=== PATIENT | male | born 1950 | race Caucasian/White ===

== ENCOUNTER 2019-01-09 07:51 | Day surgery (SDC) | payer OTHER ==
[2019-01-09] MEDS ORDERED: CEFAZOLIN 2 GM/50 ML (PMX) 50 ML IVPB (08:00)
[2019-01-09] MEDS ORDERED: SOD CHLORIDE 0.9% 1,000 ML IV (08:00)
[2019-01-09 08:49] LABS: ADD MAN DIFF? NO
[2019-01-09 08:54] LABS: WHITE BLOOD COUNT 4.8 10^3/ul (4.8-10.8)
[2019-01-09 08:54] LABS: BASOPHILS % 0.8 % (0.0-2.0); EOSINOPHILS # 0.1 10^3/ul (0.0-0.5); EOSINOPHILS % 2.9 % (0.0-7.0); HEMATOCRIT 40.5 % (42.0-52.0); HEMOGLOBIN 13.3 g/dl (14.0-18.0); LYMPHOCYTES # 1.2 10^3/ul (0.8-2.9); LYMPHOCYTES % 24.5 % (15.0-51.0); MEAN CORPUSCULAR HEMOGLOBIN 30.7 pg (29.0-33.0); MEAN CORPUSCULAR HGB CONC 32.8 g/dl (32.0-37.0); MEAN CORPUSCULAR VOLUME 93.5 fl (82.0-101.0); MEAN PLATELET VOLUME 9.9 fl (7.4-10.4); MONOCYTE # 0.6 10^3/ul (0.3-0.9); MONOCYTES % 12.1 % (0.0-11.0); NEUTROPHIL # 2.8 10^3/ul (1.6-7.5); NEUTROPHILS % 59.5 % (39.0-77.0); PLATELET COUNT 145 10^3/UL (140-415); RED BLOOD COUNT 4.33 10^6/ul (4.70-6.10); RED CELL DISTRIBUTION WIDTH 14.3 % (11.5-14.5)
[2019-01-09 09:14] LABS: INR 1.05; PROTIME 13.8 Sec (11.9-14.9); PT RATIO 1.1
[2019-01-09 09:34] LABS: ALANINE AMINOTRANSFERASE 46 IU/L (13-69); ALBUMIN 4.3 g/dl (3.3-4.9); ALBUMIN/GLOBULIN RATIO 1.04; ALKALINE PHOSPHATASE 61 IU/L (42-121); ANION GAP 12 (5-13); ASPARTATE AMINO TRANSFERASE 41 IU/L (15-46); BILIRUBIN,INDIRECT 0.1 mg/dl (0-1.1); BILIRUBIN,TOTAL 0.1 mg/dl (0.2-1.3); BLOOD UREA NITROGEN 19 mg/dl (7-20); CALCIUM 9.5 mg/dl (8.4-10.2); CARBON DIOXIDE 28 mmol/L (21-31); CHLORIDE 101 mmol/L (97-110); CREATININE 0.65 mg/dl (0.61-1.24); Estimated GFR > 60 mL/min (>60); GLUCOSE 109 mg/dl (70-220); POTASSIUM 4.4 mmol/L (3.5-5.1); SODIUM 141 mmol/L (135-144); TOTAL PROTEIN 8.4 g/dl (6.1-8.1)
[2019-01-09] MEDS ORDERED: ROCURONIUM 50 MG INJ (09:37)
[2019-01-09] MEDS ORDERED: LIDOCAINE 2% (SDV) 5 ML INJ (09:37)
[2019-01-09] MEDS ORDERED: PROPOFOL 20 ML (09:37)
[2019-01-09] MEDS ORDERED: CEFAZOLIN 1 GM INJ (09:38)
[2019-01-09] MEDS ORDERED: FENTAnyl 50 MCG/ML VIAL ×2 (09:38→10:45)
[2019-01-09] MEDS ORDERED: ONDANSETRON 4 MG INJ (09:38)
[2019-01-09] MEDS ORDERED: DEXAMETHASONE 4 MG/ML 5 ML INJ (09:38)
[2019-01-09] MEDS ORDERED: MIDAZOLAM 1 MG/ML 2 ML INJ (09:38)
[2019-01-09] MEDS ORDERED: FENTAnyl 50 MCG/ML VIAL IV (10:00)
[2019-01-09] MEDS ORDERED: LABETALOL HCL 20MG INJ IV (10:00)
[2019-01-09] MEDS ORDERED: SUGAMMADEX SODIUM 200 MG/2 ML VIAL IV (10:33)
[2019-01-09] MEDS: BUPIVACAINE 0.5%/EPI (SDV) 30 ML INJ (10:39)
[2019-01-09] MEDS: LIDOCAINE 1% (MPF) 30 ML INJ (10:40)
[2019-01-09] MEDS ORDERED: KETOROLAC 30 MG INJ (12:46)
[2019-01-09] MEDS: hydrALAzine 20 MG INJ IV (13:09)
[2019-01-09] MEDS: HYDROmorphONE 1 MG/5 ML IV SYRINGE IV ×2 (13:31→13:46)
[2019-01-09] MEDS: ONDANSETRON 4 MG INJ IV (13:31)
[2019-01-09] MEDS ORDERED: MEPERIDINE 25 MG INJ (13:37)
[2019-01-09] MEDS: MEPERIDINE 25 MG INJ IV (13:57)
[2019-01-09] MEDS ORDERED: MEPERIDINE 50 MG INJ IV (14:00)
[2019-01-09] MEDS: ACETAMINOPHEN 500 MG TAB PO (15:18)
== END 2019-01-09 15:40 | disposition home or self-care (01) ==
LOC: SDS 07:51
DX: K40.20 Bilateral inguinal hernia, without obstruction or gangrene, not specified as recurrent (principal); I10 Essential (primary) hypertension; F17.200 Nicotine dependence, unspecified, uncomplicated
CPT/HCPCS: 49650; 71045; 80053; 85025; 85610; 85730; 88304; 93005